=== PATIENT | male | born 1925 | race African-American/Black ===

== ENCOUNTER 2017-05-29 17:48 | Inpatient (IN) | payer OTHER ==
[~2017-05-29] VITALS: Ht 185.4 cm; Wt 79.4 kg
[2017-05-29] VITALS (14 sets, daily range): BP systolic 44–97; BP diastolic 21–51
[~2017-05-29 17:48] MED LIST: ETOMIDATE 2MG/ML 10ML VIAL IV ONE; SUCCINYLCHOLINE CHLORIDE 200MG/10ML VIAL IV ONE
[2017-05-29] MEDS ORDERED: LORAZEPAM 2MG/ML CPJ ONE (18:24)
[2017-05-29] MEDS ORDERED: LORAZEPAM 2MG/ML CPJ IV ONE (19:00)
[2017-05-29] MEDS ORDERED: SUCCINYLCHOLINE CHLORIDE 200MG/10ML VIAL IV ONE (19:00)
[2017-05-29] MEDS ORDERED: MIDAZOLAM HCL 50 MG in DEXTROSE 5% WATER 40 ML IV ONE ×4 (19:00)
[2017-05-29] MEDS ORDERED: PROPOFOL 10MG/ML 100ML 100 ML IV ONE (19:00)
[2017-05-29] MEDS ORDERED: PIPERACILLIN/TAZ 3.375G PREMIX 50 ML IV ONE (19:00)
[2017-05-29] MEDS ORDERED: VANCOMYCIN 1 G PREMIX 200 ML IV ONE (19:00)
[2017-05-29] MEDS ORDERED: SODIUM CHLORIDE 0.9% 1000ML BAG (SEPSIS BOLUS) IV ONE (19:00)
[2017-05-29] MEDS ORDERED: NOREPINEPHRINE 4 MG in DEXT 5% WATER 246 ML IV ONE ×2 (19:00→21:45)
[2017-05-29] MEDS ORDERED: NOREPINEPHRINE 4 MG in DEXT 5% WATER 246 ML IV SCH (19:00)
[2017-05-29 19:15] LABS: CLARITY URINE CLOUDY (CLEAR); COLOR URINE DARK YELLOW (YELLOW); GLUCOSE URINE NEGATIVE (NEGATIVE); KETONES URINE TRACE (NEGATIVE); LEUKOCYTE ESTERASE URINE 1+ (NEGATIVE); NITRITE URINE NEGATIVE (NEGATIVE); OCCULT BLOOD URINE 2+ (NEGATIVE); PROTEIN URINE 1+ (NEGATIVE); UROBILINOGEN URINE 0.2 E.U./dL (0.2-1.0)
[2017-05-29 19:40] LABS: CHLORIDE 110 mEq/L (98-107)
[2017-05-29 19:41] LABS: INR 1.3; PROTHROMBIN TIME 13.7 sec (9.4-11.6)
[2017-05-29 19:43] LABS: CARBON DIOXIDE 14 mEq/L (21-32)
[2017-05-29 19:52] LABS: TROPONIN I 0.82 ng/mL (0.00-0.04)
[2017-05-29 20:30] LABS: BASOPHILS % 0.4 % (0.0-2.0); EOSINOPHILS % 0.1 % (0.0-5.0); HEMATOCRIT. 31.5 % (42.0-52.0); HEMOGLOBIN. 10.1 g/dL (14.0-18.0); MEAN CORPUSCULAR HEMOGLOBIN 29.4 pg (28.0-32.0); MEAN CORPUSCULAR VOLUME 92.2 fL (80.0-94.0); MEAN PLATELET VOLUME 7.8 fl (7.4-10.4); MONOCYTES % 10.7 % (2.0-8.0); NEUTROPHILS % 75.8 % (40.0-76.0); PLATELET 102 x1000/uL (130-400); RED BLOOD CELL COUNT 3.42 mill/uL (4.7-6.1); RED CELL DISTRIBUTION WIDTH 15.3 % (11.6-14.6)
[2017-05-29] MEDS ORDERED: ASPIRIN 300MG SUPP PR ONE (21:15)
[2017-05-29] MEDS ORDERED: SODIUM CHLORIDE 0.9% 1,000 ML IV ONE ×2 (21:34→23:00)
[2017-05-29] MEDS ORDERED: ONDANSETRON HCL 4MG/2ML VIAL IV PRN (22:30)
[2017-05-29] MEDS ORDERED: NOREPINEPHRINE 4 MG in DEXT 5% WATER 246 ML IV PRN (22:30)
[2017-05-29] MEDS ORDERED: LORAZEPAM 2MG/ML CPJ IV PRN (22:30)
[2017-05-29] MEDS ORDERED: CLONIDINE 0.1MG TABLET PO PRN (22:30)
[2017-05-29] MEDS ORDERED: VANCOMYCIN 1 G PREMIX 200 ML IV SCH (22:30)
[2017-05-29] MEDS ORDERED: DOCUSATE SODIUM 100MG CAPSULE PO PRN (22:30)
[2017-05-29] MEDS ORDERED: DIPHENHYDRAMINE 50MG/ML VIAL IV PRN (22:30)
[2017-05-29] MEDS ORDERED: ACETAMINOPHEN 325MG TABLET PO PRN (22:30)
[2017-05-29] MEDS ORDERED: IPRATROPIUM/ALBUTEROL 0.5-3(2.5)MG/3ML NEB INH PRN (22:30)
[2017-05-29] MEDS ORDERED: DEXT 5%/0.45% NACL 1000ML 1,000 ML IV SCH (22:47)
[2017-05-29] MEDS: ALBUMIN HUMAN 25GM/100ML (25%) IV SCH (23:23)
[2017-05-29] MEDS ORDERED: PRED5TAB48 PO (23:25)
[2017-05-29] MEDS ORDERED: ALEN70TA3 PO (23:25)
[2017-05-29] MEDS ORDERED: MULT-1146 PO (23:25)
[2017-05-29] MEDS ORDERED: LISI-186 PO (23:25)
[2017-05-29] MEDS ORDERED: ABIR250T PO (23:25)
[2017-05-29] MEDS ORDERED: DONE5TAB7 PO (23:25)
[2017-05-29] MEDS ORDERED: MIRT15TA PO (23:25)
[2017-05-29] MEDS ORDERED: SIMV20TA6 PO (23:25)
[2017-05-29] MEDS ORDERED: POTA10TA11 PO (23:25)
[2017-05-29] MEDS ORDERED: HY1 GT (23:25)
[2017-05-29] MEDS ORDERED: [UNRECOGNIZED DRUG - CODE] PO (23:25)
[2017-05-29] MEDS: VASOPRESSIN 10 UNIT in SODIUM CHLORIDE 0.9% 99.5 ML IV PRN (23:40)
[2017-05-29] MEDS: DOPAMINE 400MG PREMIX 250 ML IV PRN (23:56)
[2017-05-30] VITALS (51 sets, daily range): BP systolic 0–120; BP diastolic 0–69
[2017-05-30] MEDS ORDERED: IPRATROPIUM/ALBUTEROL 0.5-3(2.5)MG/3ML NEB HHN SCH
[2017-05-30] MEDS ORDERED: ATROPINE SULFATE 1MG/10ML SYR IV NR ×2 (00:30)
[2017-05-30] MEDS ORDERED: ALBUMIN HUMAN 25GM/500ML (5%) IV NR (01:00)
[2017-05-30] MEDS ORDERED: SODIUM BICARBONATE 8.4% 1 MEQ/ML 50ML SYR IV NR (01:00)
[2017-05-30] MEDS ORDERED: NOREPINEPHRINE 32 MG in DEXT 5% WATER 468 ML IV PRN (01:45)
[2017-05-30] MEDS: DOPAMINE 400MG PREMIX 250 ML IV PRN ×3 (02:00→07:02)
[2017-05-30] MEDS: PHENYLEPHRINE 40 MG in DEXT 5% WATER 250 ML IV PRN ×3 (02:01→09:11)
[2017-05-30] MEDS ORDERED: SODIUM BICARBONATE 100 MEQ in DEXTROSE 5% WATER 1,000 ML IV SCH (03:00)
[2017-05-30] MEDS: VASOPRESSIN 10 UNIT in SODIUM CHLORIDE 0.9% 99.5 ML IV PRN ×2 (03:19→07:07)
[2017-05-30] MEDS ORDERED: PIPERACILLIN/TAZ 2.25G PREMIX 50 ML IV SCH (04:00)
[2017-05-30] MEDS: ALBUMIN HUMAN 25GM/100ML (25%) IV SCH (05:11)
[2017-05-30] MEDS ORDERED: MORPHINE SULFATE 10 MG/ML CPJ IV PRN (08:15)
[2017-05-30] MEDS ORDERED: ENOXAPARIN 30MG/0.3ML SYR SUBCUT SCH (09:00)
[2017-05-30] MEDS ORDERED: ASPIRIN 325MG EC TABLET PO SCH (09:00)
[2017-05-30] MEDS ORDERED: PANTOPRAZOLE SODIUM 40 MG/VIAL IV SCH (09:00)
[2017-05-30] MEDS ORDERED: LORAZEPAM 2MG/ML CPJ IV PRN (09:15)
[2017-05-30] MEDS ORDERED: MORPHINE SULFATE 100 MG in DEXT 5% WATER 90 ML IV PRN (09:15)
[2017-05-30] MEDS ORDERED: MORPHINE SULFATE 250 MG in DEXT 5% WATER 240 ML IV PRN (09:30)
[2017-05-30] MEDS ORDERED: ALBUMIN HUMAN 25GM/100ML (25%) IV SCH (22:30)
== END 2017-05-30 11:43 | disposition expired | DRG 871 ==
LOC: ER 18:00 → ENRESERV 19:03 → EDBEDREQ 21:10 → MICUNO 21:55
PROVIDERS: ADMIT Internal Medicine; ATTEND Internal Medicine
PROC: 0BH17EZ Insertion of Endotracheal Airway into Trachea, Via Natural or Artificial Opening (ICD-10-PCS; principal; 2017-05-29)
PROC: 5A1935Z Respiratory Ventilation, Less than 24 Consecutive Hours (ICD-10-PCS; 2017-05-29)
PROC: 06HM33Z Insertion of Infusion Device into Right Femoral Vein, Percutaneous Approach (ICD-10-PCS; 2017-05-29)
DX: A41.9 Sepsis, unspecified organism (principal); J96.00 Acute respiratory failure, unspecified whether with hypoxia or hypercapnia; I21.4 Non-ST elevation (NSTEMI) myocardial infarction; N17.0 Acute kidney failure with tubular necrosis; E43 Unspecified severe protein-calorie malnutrition; R65.21 Severe sepsis with septic shock; J18.9 Pneumonia, unspecified organism; C78.7 Secondary malignant neoplasm of liver and intrahepatic bile duct; C79.00 Secondary malignant neoplasm of unspecified kidney and renal pelvis; E87.2 Acidosis; D69.6 Thrombocytopenia, unspecified; C79.51 Secondary malignant neoplasm of bone; N39.0 Urinary tract infection, site not specified; F03.90 Unspecified dementia, unspecified severity, without behavioral disturbance, psychotic disturbance, mood disturbance, and anxiety; Z51.5 Encounter for palliative care; Z66 Do not resuscitate; I10 Essential (primary) hypertension; E11.9 Type 2 diabetes mellitus without complications; Z85.46 Personal history of malignant neoplasm of prostate; Z88.0 Allergy status to penicillin; Z79.899 Other long term (current) drug therapy; Z87.891 Personal history of nicotine dependence; Z78.1 Physical restraint status; Z68.23 Body mass index [BMI] 23.0-23.9, adult
CPT/HCPCS: 31500; 36415; 36556; 51702; 70450; 71010; 80053; 80061; 81001; 82962; 83036; 83605; 83880; 84484; 85025; 85610; 87040; 87077; 87086; 87186; 93005; 93970; 94002; 96365; 96366; 96367; 96375; 99291; C9113; J0330; J0461; J1265; J1650; J2060; J2250; J2370; J2543; J3370; J3490; J7030; J7040; J7050; J7060; J7070; J7620; P9041; P9047; A4315